=== PATIENT | male | born 1950 | race Caucasian/White ===

== ENCOUNTER 2019-06-27 13:26 | Observation (INO) | payer OTHER ==
[2019-06-27] MEDS ORDERED: FUROSEMIDE 100 MG/10 ML VIAL IV ONE (15:24)
[2019-06-27 15:28] LABS: Absolute Lymphocytes (CBC) 0.9 K/uL (0.7-4.9); Basophils % 0.4 % (0-1.3); Hematocrit 41.6 % (39.6-49.0); MPV 8.9 fL (7.6-11.3); RBC Red Blood Cell Count 4.19 M/uL (4.33-5.43)
[2019-06-27 15:39] LABS: ALT/SGPT 26 U/L (12-78); AST/SGOT 24 U/L (15-37); Albumin 3.8 g/dL (3.4-5.0); Alkaline Phosphatase 57 U/L (45-117); BUN Blood Urea Nitrogen 24 mg/dL (7-18); Bicarbonate 31 mmol/L (21-32); Bilirubin Direct 0.2 mg/dL (0-0.2); Bilirubin Total 0.6 mg/dL (0.2-1.0); Glucose Level 76 mg/dL (74-106); Magnesium 2.4 mg/dL (1.8-2.4); NT PRO-BNP 263 pg/mL (<125); Potassium 4.5 mmol/L (3.5-5.1); Protein, Total 8.2 g/dL (6.4-8.2); Sodium Level 141 mmol/L (136-145); Troponin (Emerg Dept Use Only) < 0.02 ng/mL (0.0-0.045)
[2019-06-27 15:45] LABS: Protime INR 0.98
--- NOTE | 2019-06-27 16:22 | ER ---
Nurse's Notes [facility] Name: Marcio Moreno Age: 68 yrs Sex: Male : 1950 Arrival Date: 06/27/2019 Time: 13:29 Bed 5 Private MD: Diagnosis: Acute combined systolic (congestive) and diastolic (congestive) heart failure Presentation: 06/27 13:29 Presenting complaint: EMS states: SENT FROM [place] FOR SOB, ROOM AIR SAT 85. Transition of bp care: patient was not received from another setting of care. Onset of symptoms is unknown. Risk Assessment: Do you want to hurt yourself or someone else? Patient reports no desire to harm self or others. Initial Sepsis Screen: Does the patient meet any 2 criteria? No. Patient's initial sepsis screen is negative. Does the patient have a suspected source of infection? No. Patient's initial sepsis screen is negative. Care prior to arrival: Medication(s) given: Albuterol Neb x 1, Atrovent Neb x 1, SOLUMEDROL 125. 13:29 Method Of Arrival: EMS: [facility] bp 13:29 Acuity: ANISHA 3 bp Triage Assessment: 13:32 General: Appears in no apparent distress. comfortable, obese, Behavior is calm, bp cooperative, appropriate for age. Pain: Denies pain. EENT: No deficits noted. Neuro: No deficits noted. Cardiovascular: Rhythm is sinus rhythm. Respiratory: Reports shortness of breath Pleural rub noted bilaterally. Onset: The symptoms/episode began/occurred 1 WEEK, the patient has mild shortness of breath. GI: No signs and/or symptoms were reported involving the gastrointestinal system. : No signs and/or symptoms were reported regarding the genitourinary system. Derm: No deficits noted. Musculoskeletal: No deficits noted. Historical: - Allergies: 13:32 FLU VACCINE; bp 13:32 Hydrocodone-Acetaminophen; bp - Home Meds: 13:44 lisinopril 5 mg Oral tab 1 tab once daily [Active]; diphenhydramine HCl 25 mg Oral cap bp [Active]; glimepiride 1 mg Oral tab 1 tab twice a day [Active]; metoprolol tartrate 25 mg Oral tab 1 tab 2 times per day [Active]; simvastatin 40 mg Oral tab 1 tab once daily [Active]; cholecalciferol (vitamin D3) 1,000 unit oral tab daily [Active]; Plavix 75 mg Oral tab 1 tab once daily [Active]; isosorbide mononitrate 60 mg Oral Tb24 1 tab once daily [Active]; - PMHx: 13:44 CAD; Hypertension; Hypothyroidism; CHF; COPD; Cancer; bp - Immunization history:: Adult Immunizations up to date. - Social history:: Smoking status: Patient uses tobacco products, unknown amount. - Ebola Screening: : No symptoms or risks identified at this time. Screenin:36 Abuse screen: Denies threats or abuse. Denies injuries from another. Nutritional bp screening: No deficits noted. Tuberculosis screening: No symptoms or risk factors identified. Fall Risk None identified. Assessment: 13:35 General: SEE TRIAGE NOTE. Cardiovascular: Rhythm is sinus rhythm. Respiratory: Airway bp is patent Respiratory effort is even, unlabored. 14:32 Reassessment: PT STANDING AT B/S "YOU'RE GONNA HAVE A FIGHT ON YOUR HANDS IF SOMEONE bp TRIES TO TOUCH ME WITH A NEEDLE.". 15:02 Reassessment: PT REORIENTED TO PROPER COMMUNICATION TECHNIQUES. U/S GUIDED PIV PLACED bp WITH NO COMPLICATIONS. 15:37 Reassessment: XRAY COMPLETED. ALL CURRENT ORDERS COMPLETED, VS STABLE ON MONITOR. bp Vital Signs: 13:34 BP 138 / 63; Pulse 61; Resp 18; Temp 98.2; Pulse Ox 99% on NC; Weight 132.45 kg; Height bp 5 ft. 8 in. (172.72 cm); 15:36 BP 132 / 67; Pulse 66; Resp 16; Pulse Ox 100% ; bp 17:30 BP 117 / 79; Pulse 64; Resp 16; Pulse Ox 98% ; bp 17:51 BP 127 / 85; Pulse 63; Resp 18; Pulse Ox 96% on 3 lpm NC; bp 13:34 Body Mass Index 44.40 (132.45 kg, 172.72 cm) bp ED Course: 13:29 Patient arrived in ED. bp 13:31 Triage completed. bp 13:34 Arm band placed on. bp 13:36 Patient has correct armband on for positive identification. Bed in low position. Call bp light in reach. Side rails up X2. Adult w/ patient. 13:36 EKG done, by solids control technician. reviewed by Andreas Yin MD. 3 13:37 Lam Moreno, RN is Primary Nurse. bp 13:45 Fredy Colin PA is PHCP. jr8 13:45 Andreas Yin MD is Attending Physician. jr8 14:50 Accessed peripheral vein via ultrasound, utilizing dynamic ultrasound technique using bp 18G Sureflo IV catheter per hospital protocol. Clean \\T\\ dry. Dressing intact. Good blood return. Flushes easily. 16:10 XRAY Chest (1 view) In Process Unspecified. EDMS 16:20 Collins Ta DO is Hospitalizing Provider. jr8 16:27 attempted to initiate a transfer x3 with the [facility] at [phone] ext [phone] without anyone answering the lines. provider notified. 17:30 No provider procedures requiring assistance completed. Patient admitted, IV remains in bp place. Administered Medications: 14:58 Drug: Lasix 80 mg Route: IVP; Site: right upper arm; bp 17:52 Follow up: Response: Marked relief of symptoms bp Outcome: 16:21 Decision to Hospitalize by Provider. jr8 17:31 Condition: stable bp 17:31 Instructed on the need for admit. 17:51 Admitted to Med/surg accompanied by tech, family with patient, via wheelchair, room bp 230, with chart, Report called to MAHIN ZARCO 18:04 Patient left the ED. bp Signatures: Dispatcher [employer] EDNC Fredy Colin PA PA jr8 Lam Moreno, RN RN bp Lupe Fallon Shakira 3
--- NOTE | 2019-06-27 16:22 | EDPHYS ---
Physician Documentation [facility] Name: Marcio Moreno Age: 68 yrs Sex: Male : 1950 Arrival Date: 06/27/2019 Time: 13:29 Bed 5 Private MD: ED Physician Andreas Yin HPI: 06/27 14:14 This 68 yrs old Male presents to ER via EMS with complaints of Shortness Of jr8 Breath. 14:14 The patient has shortness of breath at rest. Onset: The symptoms/episode began/occurred jr8 gradually, 2 day(s) ago, and became worse and became persistent. Duration: The symptoms are continuous. The patient's shortness of breath is aggravated by light activity, walking. Associated signs and symptoms: The patient has no apparent associated signs or symptoms. Severity of symptoms: At their worst the symptoms were moderate in the emergency department the symptoms are unchanged. The patient has not experienced similar symptoms in the past. The patient has been recently seen by a physician:. Patient and stated that they just came to [place] via [employer] train. Stated that he was having some mile shortness of breath a couple of days ago on the way here. Noted that for the past week had increased fluid retention. Now to the point where he can get around well and has increased cough and shortness of breath. Saw [place] [facility] today here and was instructed to go to ED . Historical: - Allergies: 13:32 FLU VACCINE; bp 13:32 Hydrocodone-Acetaminophen; bp - Home Meds: 13:44 lisinopril 5 mg Oral tab 1 tab once daily [Active]; diphenhydramine HCl 25 mg Oral cap bp [Active]; glimepiride 1 mg Oral tab 1 tab twice a day [Active]; metoprolol tartrate 25 mg Oral tab 1 tab 2 times per day [Active]; simvastatin 40 mg Oral tab 1 tab once daily [Active]; cholecalciferol (vitamin D3) 1,000 unit oral tab daily [Active]; Plavix 75 mg Oral tab 1 tab once daily [Active]; isosorbide mononitrate 60 mg Oral Tb24 1 tab once daily [Active]; - PMHx: 13:44 CAD; Hypertension; Hypothyroidism; CHF; COPD; Cancer; bp - Immunization history:: Adult Immunizations up to date. - Social history:: Smoking status: Patient uses tobacco products, unknown amount. - Ebola Screening: : No symptoms or risks identified at this time. ROS: 14:14 Eyes: Negative for injury, pain, redness, and discharge, ENT: Negative for injury, jr8 pain, and discharge, Neck: Negative for injury, pain, and swelling, Abdomen/GI: Negative for abdominal pain, nausea, vomiting, diarrhea, and constipation, Back: Negative for injury and pain, MS/Extremity: Negative for injury and deformity, Skin: Negative for injury, rash, and discoloration, Neuro: Negative for headache, weakness, numbness, tingling, and seizure. 14:14 Cardiovascular: Positive for edema, orthopnea. 14:14 Respiratory: Positive for dyspnea on exertion, orthopnea, shortness of breath. Exam: 14:14 Eyes: Pupils equal round and reactive to light, extra-ocular motions intact. Lids and jr8 lashes normal. Conjunctiva and sclera are non-icteric and not injected. Cornea within normal limits. Periorbital areas with no swelling, redness, or edema. ENT: Nares patent. No nasal discharge, no septal abnormalities noted. Tympanic membranes are normal and external auditory canals are clear. Oropharynx with no redness, swelling, or masses, exudates, or evidence of obstruction, uvula midline. Mucous membranes moist. Neck: Trachea midline, no thyromegaly or masses palpated, and no cervical lymphadenopathy. Supple, full range of motion without nuchal rigidity, or vertebral point tenderness. No Meningismus. Abdomen/GI: Soft, non-tender, with normal bowel sounds. No distension or tympany. No guarding or rebound. No evidence of tenderness throughout. Back: No spinal tenderness. No costovertebral tenderness. Full range of motion. Skin: Warm, dry with normal turgor. Normal color with no rashes, no lesions, and no evidence of cellulitis. MS/ Extremity: Pulses equal, no cyanosis. Neurovascular intact. Full, normal range of motion. Neuro: Awake and alert, GCS 15, oriented to person, place, time, and situation. Cranial nerves II-XII grossly intact. Motor strength 5/5 in all extremities. Sensory grossly intact. Cerebellar exam normal. Normal gait. 14:14 Cardiovascular: Rate: normal, Rhythm: regular, Pulses: Pulses are 2+ in right radial artery and left radial artery. Heart sounds: normal, normal S1and S2, no S3 or S4, no murmur, no rub, no gallop, Edema: 3+ edema to level of left midcalf, left ankle, left foot, left toes, right midcalf, right ankle, right foot and right toes, JVD: is not appreciated. 14:14 Respiratory: the patient does not display signs of respiratory distress, Respirations: normal, symetrical, no use of accessory muscles, no grunting, no evidence of nasal flaring, no appreciated paradoxical movements, no prolonged exhalations, no pursed lip breathing, no retractions, no shallow respirations, no splinting, no tachypnea, Breath sounds: rales, that are moderate, are heard diffusely, wheezing: expiratory that is mild, is heard diffusely. Vital Signs: 13:34 BP 138 / 63; Pulse 61; Resp 18; Temp 98.2; Pulse Ox 99% on NC; Weight 132.45 kg; Height bp 5 ft. 8 in. (172.72 cm); 15:36 BP 132 / 67; Pulse 66; Resp 16; Pulse Ox 100% ; bp 17:30 BP 117 / 79; Pulse 64; Resp 16; Pulse Ox 98% ; bp 17:51 BP 127 / 85; Pulse 63; Resp 18; Pulse Ox 96% on 3 lpm NC; bp 13:34 Body Mass Index 44.40 (132.45 kg, 172.72 cm) bp MDM: 13:58 Patient medically screened. [facility] 16:11 Data reviewed: vital signs, nurses notes, lab test result(s), EKG, radiologic studies, jr8 plain films. Data interpreted: Pulse oximetry: on 3L(s) per nasal canula, is 99 %. Interpretation: acceptable. Counseling: I had a detailed discussion with the patient and/or guardian regarding: the historical points, exam findings, and any diagnostic results supporting the discharge/admit diagnosis, lab results, radiology results, the need for further work-up and treatment in the hospital. 16:26 ED course: Attempted to call the [place] [facility] for transfer since patient is fully [place] jr8 insured patient. We tried 3 times with no answer or call back. Patient is wanting to stay here as well. Notified HM about this. Will accept patient . 06/27 13:59 Order name: Basic Metabolic Panel; Complete Time: 15:51 06/27 13:59 Order name: CBC with Diff; Complete Time: 15:51 06/27 13:59 Order name: LFT's; Complete Time: 15:51 06/27 13:59 Order name: Magnesium; Complete Time: 15:51 06/27 13:59 Order name: NT PRO-BNP; Complete Time: 15:51 06/27 13:59 Order name: PT-INR; Complete Time: 15:56 06/27 13:59 Order name: Troponin (emerg Dept Use Only); Complete Time: 15:51 06/27 13:59 Order name: XRAY Chest (1 view); Complete Time: 16:47 06/27 13:59 Order name: EKG; Complete Time: 14:01 06/27 13:59 Order name: Cardiac monitoring; Complete Time: 14:27 06/27 13:59 Order name: EKG - Nurse/Tech; Complete Time: 14:27 06/27 13:59 Order name: IV Saline Lock; Complete Time: 14:58 06/27 13:59 Order name: Labs collected and sent; Complete Time: 14:58 06/27 13:59 Order name: O2 Per Protocol; Complete Time: 14:27 06/27 13:59 Order name: O2 Sat Monitoring; Complete Time: 14:27 Administered Medications: 14:58 Drug: Lasix 80 mg Route: IVP; Site: right upper arm; bp 17:52 Follow up: Response: Marked relief of symptoms bp Disposition: 06/28 07:17 Co-signature as Attending Physician, Andreas Yin MD I agree with the assessment and kdr plan of care. Disposition: 06/27/19 16:21 Hospitalization ordered by Collins Ta for Observation. Preliminary diagnosis is Acute combined systolic (congestive) and diastolic (congestive) heart failure. - Bed requested for Telemetry/MedSurg (observation). - Status is Observation. bp - Condition is Fair. - Problem is new. - Symptoms have improved. UTI on Admission? No Signatures: Dispatcher [employer] Christy Cole RN RN dw Rittger, Kevin, MD MD kdr Roszak, Josh PA PA jr8 Lam Moreno, RN RN bp Corrections: (The following items were deleted from the chart) 06/27 17:29 16:21 Hospitalization Ordered by Collins Ta DO for Observation. Preliminary dw diagnosis is Acute combined systolic (congestive) and diastolic (congestive) heart failure. Bed requested for Telemetry/MedSurg (observation). Status is Observation. Condition is Fair. Problem is new. Symptoms have improved. UTI on Admission? No. jr8 18:04 17:29 06/27/2019 16:21 Hospitalization Ordered by Collins Ta DO for Observation. bp Preliminary diagnosis is Acute combined systolic (congestive) and diastolic (congestive) heart failure. Bed requested for Telemetry/MedSurg (observation). Status is Observation. Condition is Fair. Problem is new. Symptoms have improved. UTI on Admission? No. dw
--- NOTE | 2019-06-27 16:23 | RAD REPORT ---
EXAM DESCRIPTION: Ann Single View06/27/2019 3:44 pm CLINICAL HISTORY: sob COMPARISON: none FINDINGS: The lungs appear clear of acute infiltrate. The heart is mildly enlarged IMPRESSION: No acute abnormalities displayed
--- NOTE | 2019-06-27 16:49 | P.HP ---
Certification for Inpatient Patient admitted to: Observation With expected LOS: <2 Midnights Patient will require the following post-hospital care: None Practitioner: I am a practitioner with admitting privileges, knowledge of patient current condition, hospital course, and medical plan of care. Services: Services provided to patient in accordance with Admission requirements found in Title 42 Section 412.3 of the Code of Federal Regulations Patient History Date of Service: 06/27/19 Primary Care Provider: [facility] Reason for admission: Shortness of breath, edema to the lower extremity History of Present Illness: 68-year-old male presented to the emergency room via EMS for shortness of breath and edema to the lower extremity. Patient with history of CHF, COPD, CAD with prior stent, diabetes mellitus type 2 non insulin dependent , hypertension, hyperlipidemia, and hypothyroidism. The patient is currently visiting from [facility]. Patient gets his care at the [facility]. Over the last several weeks the patient has noted increasing edema to the lower extremity. Shortness of breath has been noted over the past several days. His shortness of breath got worse today. Patient denied any chest pain. No reports of fever, chills or cough. Patient still smokes regularly. Patient with history of CHF. Patient does not take any diuretic medication. Patient was seen at the local [facility]. He was found to be hypoxic with some shortness of breath. He was sent to the ER by EMS. In the ER patient was evaluated. EMS reported room-air saturations around 88%. Patient appeared to have increasing edema to the lower extremity with evidence of CHF. Patient was given IV Lasix 80 mg in the emergency room. Chest x-ray showed CHF pattern. White count 9.7, hemoglobin 14. Sodium 141, potassium 4.5. BUN of 24, creatinine 1.6 with a GFR of 42. Troponin unremarkable. BNP 263. Patient was admitted for further evaluation and treatment. When I saw the patient in the ER, patient felt improved with IV Lasix. ER tried to transfer the patient to the [place] since he has full [facility] benefit. Transfer was not successful. Therefore patient to be admitted to the hospital. Home medications list reviewed: Yes - Past Medical/Surgical History Diabetic: Yes -: Diabetes mellitus type 2, non insulin dependent -: Hypertension -: Hyperlipidemia -: CAD with prior stents -: CHF -: COPD -: Tobacco abuse -: Hypothyroidism -: Obesity -: B12 deficiency -: Cholecystectomy -: Lithotripsy -: Cardiac stents x2 -: Left elbow surgery -: Right knee surgery Psychosocial/ Personal History: Patient is . He is originally from [facility]. He is visiting in the area. - Family History Family History: Reviewed- Non-Contributory - Social History Smoking Status: Heavy Tobacco smoker (>10 cigarettes/day) Counseled patient to stop smoking for: less than 10 minutes Smoking therapy provided: Yes Patient receptive to therapy: No Alcohol use: Yes CD- Drugs: No Caffeine use: Yes Place of Residence: Home Review of Systems General: As per HPI Eyes: Unremarkable ENT: Unremarkable Respiratory: Shortness of Breath, Wheezing, As per HPI Cardiovascular: Edema, As per HPI Gastrointestinal: Unremarkable Genitourinary: Unremarkable Musculoskeletal: Pedal edema, As per HPI Integumentary: Unremarkable Neurological: Unremarkable Lymphatics: Unremarkable Physical Examination - Physical Exam General: Alert, In no apparent distress, Oriented x3, Cooperative HEENT: Atraumatic, Normocephalic, PERRLA, Mucous membr. moist/pink Neck: Supple, No Thyromegaly Respiratory: Crackles/rales (Bilateral), Expiratory wheezes (Bilateral) Cardiovascular: Normal pulses, Regular rate/rhythm Gastrointestinal: Normal bowel sounds, Soft and benign, Non-distended, No tenderness, No masses, No rebound, No guarding Musculoskeletal: No erythema, No tenderness, No warmth Integumentary: Tenderness/swelling (1 to 2+ pitting edema to the lower extremities below the knee) Neurological: Normal speech, Normal strength at 5/5 x4 extr, Normal tone, Normal affect - Studies Laboratory Data (last 24 hrs) 06/27/19 14:55: PT 11.6, INR 0.98 06/27/19 14:55: WBC 4.7, Hgb 14.1, Hct 41.6, Plt Count 119 L 06/27/19 14:55: Sodium 141, Potassium 4.5, BUN 24 H, Creatinine 1.65 H, Glucose 76, Magnesium 2.4, Total Bilirubin 0.6, AST 24, ALT 26, Alkaline Phosphatase 57 Assessment and Plan - Plan Impression: Dyspnea with edema to the lower extremity secondary to acute on chronic CHF likely systolic dysfunction with possible COPD exacerbation CAD with prior stent Hypertension Diabetes mellitus type 2 non insulin dependent Hyperlipidemia Hypothyroidism B12 deficiency Obesity Plan: Dyspnea with edema to the lower extremity secondary to acute on chronic CHF likely systolic dysfunction with possible COPD exacerbation: Patient will be admitted for further evaluation and observation. Will continue with IV Lasix. Will continue with a 1500 cc per day fluid restriction and low-salt diet. Will monitor his weight and input and output closely. Will check echocardiogram to further evaluate. Will continue to monitor on telemetry and cardiac enzymes. Will consult cardiology for further recommendation. Patient may have a component of COPD exacerbation as the patient still smokes regularly. Will start low-dose steroid taper. Will start COPD medication-Brovana, Xopenex and Atrovent. Will wean off oxygen. Maintain sats above 93% at this time. Will reassess tomorrow. Anticipate discharge likely tomorrow with clinical improvement. CAD with prior stent: Continue with aspirin, Plavix. Will provide DVT prophylaxis-Lovenox. Will monitor cardiac enzymes and telemetry. Echocardiogram ordered. Cardiology consulted. Hypertension: Restart lisinopril 5 mg daily and metoprolol 25 mg 1 pill twice daily. Will monitor and adjust appropriately. Diabetes mellitus type 2 non insulin dependent: Will check A1c. Will continue to monitor Accu-Cheks and provide insulin sliding scale. Hyperlipidemia: Continue with medication. Will check fasting lipid panel. Hypothyroidism: Will check tsh and free T4. Will continue with levothyroxine 200 mcg daily. B12 deficiency: Will continue with B12 supplementation. Obesity: Will check BMI. Will address lifestyle modification education. Discharge Plan: Home Plan to discharge in: 24 Hours - Advance Directives Does patient have a Living Will: No Does patient have a Durable POA for Healthcare: No - Code Status/Comfort Care Code Status Assessed: Yes (Patient is full code) Time Spent Managing Pts Care (In Minutes): 55
--- NOTE | 2019-06-27 17:22 | EKG ---
Test Date: 2019-06-27 Test Time: 13:30:10 Binder Roller: KIYA MEASUREMENT RESULTS: Intervals: Rate: 63 TX: 158 QRSD: 108 QT: 406 QTc: 415 [place]: P: 51 TX: 158 QRS: -37 T: 45 INTERPRETIVE STATEMENTS: Normal sinus rhythm Left axis deviation Abnormal ECG No previous ECG available for comparison Electronically Signed On 06-27-19 17:21:31 PET CARE ASSISTANT by Jovi Mars
[2019-06-27] MEDS ORDERED: ACETAMINOPHEN 500 MG TAB PO PRN (17:57)
[2019-06-27] MEDS ORDERED: ONDANSETRON 4 MG/2 ML VIAL IV PRN (17:57)
[2019-06-27] MEDS ORDERED: LEVALBUTEROL 0.63 MG/3 ML NEB NEB PRN (17:57)
[2019-06-27 18:38] VITALS: BMI 44.4
[2019-06-27] MEDS: METOPROLOL TAR 25 MG TAB PO SCH (18:49)
[2019-06-27] MEDS: NICOTINE 21 MG/PAT TD SCH (19:00)
[2019-06-27] MEDS: ARFORMOTEROL TARTRATE 15 MCG/2 ML VIAL.NEB NEB SCH (20:00)
[2019-06-27] MEDS: LACTOBACILLUS/ACIDOPHILUS TAB PO SCH (20:23)
[2019-06-27] MEDS: DOCOSAHEXANOIC AC/EPA 1000 MG PO SCH (20:23)
[2019-06-27] MEDS: predniSONE 10 MG TAB PO SCH (20:24)
[2019-06-27] MEDS: FUROSEMIDE 40 MG/4 ML VIAL IV SCH (20:24)
[2019-06-27] MEDS: ATORVASTATIN 20 MG TAB PO SCH (20:24)
[2019-06-27 20:37] LABS: CKMB Creatine Kinase MB < 1.0 ng/mL (0.3-3.6); Creatine Phosphokinase 46 U/L (39-308); Troponin I < 0.02 ng/mL (0.0-0.045)
[2019-06-27] MEDS: INSULIN -REGULAR HUMAN 50 UNIT/0.5 ML ML SQ SCH (21:00)
[2019-06-27] MEDS: ENOXAPARIN 40 MG/0.4 ML SQ SCH (21:00)
[2019-06-28] MEDS: METOPROLOL TAR 25 MG TAB PO SCH ×2 (06:00→17:03)
[2019-06-28] MEDS: LEVOTHYROXINE SOD 0.1 MG TAB PO SCH (06:30)
[2019-06-28 06:39] LABS: Absolute Lymphocytes (CBC) 0.6 K/uL (0.7-4.9); BUN Blood Urea Nitrogen 32 mg/dL (7-18); Bicarbonate 27 mmol/L (21-32); CKMB Creatine Kinase MB < 1.0 ng/mL (0.3-3.6); Creatine Phosphokinase 43 U/L (39-308); Glucose Level 246 mg/dL (74-106); HDL Cholesterol 42 mg/dL (40-60); Hematocrit 41.1 % (39.6-49.0); LDL Cholesterol, Calculated 77 (<130); Lymphocytes % 9.3 % (15.3-44.8); MPV 9.3 fL (7.6-11.3); Magnesium 2.3 mg/dL (1.8-2.4); Potassium 4.5 mmol/L (3.5-5.1); RBC Red Blood Cell Count 4.16 M/uL (4.33-5.43); Sodium Level 136 mmol/L (136-145); Thyroid Stimulating Hormone 0.073 uIU/mL (0.360-3.740); Troponin I < 0.02 ng/mL (0.0-0.045)
--- NOTE | 2019-06-28 07:10 | RAD REPORT ---
EXAM DESCRIPTION: RAD - Chest Pa And Lat (2 Views) - 06/28/2019 6:45 am CLINICAL HISTORY: follow up CHF COMPARISON: June 27 TECHNIQUE: PA and lateral views of the chest were obtained. FINDINGS: The lungs are slightly underinflated. No focal mass or consolidation. Interstitial opacifi cation pattern has not changed. Heart size and vasculature are stable. Trachea is midline. No pleur al effusion or pneumothorax seen. No acute bony finding noted. No aortic abnormality. IMPRESSION: Stable chest from prior day imaging.
[2019-06-28] MEDS: INSULIN -REGULAR HUMAN 50 UNIT/0.5 ML ML SQ SCH ×4 (07:30→21:00)
[2019-06-28] MEDS: ARFORMOTEROL TARTRATE 15 MCG/2 ML VIAL.NEB NEB SCH ×2 (08:15→20:00)
[2019-06-28 08:46] LABS: Blood Morphology Comment NOT SEEN (NOT SEEN); Platelet Estimate ADEQ; Urine White Blood Cell Casts OK
[2019-06-28] MEDS: ENOXAPARIN 40 MG/0.4 ML SQ SCH (09:00)
[2019-06-28] MEDS: lisinopriL 5 MG TAB PO SCH (09:00)
[2019-06-28] MEDS: NICOTINE 21 MG/PAT TD SCH (09:35)
[2019-06-28] MEDS: FUROSEMIDE 40 MG/4 ML VIAL IV SCH ×2 (09:37→17:03)
[2019-06-28] MEDS: DOCOSAHEXANOIC AC/EPA 1000 MG PO SCH ×2 (09:38→21:41)
[2019-06-28] MEDS: LACTOBACILLUS/ACIDOPHILUS TAB PO SCH ×2 (09:38→21:41)
[2019-06-28] MEDS: CLOPIDOGREL 75 MG TABLET PO SCH (09:38)
[2019-06-28] MEDS: CYANOCOBALAMIN 1,000 MCG TAB PO SCH (09:40)
[2019-06-28] MEDS: predniSONE 10 MG TAB PO SCH ×2 (09:40→21:42)
[2019-06-28] MEDS: ISOSORBIDE MONO SR 60 MG TAB PO SCH (09:40)
[2019-06-28] MEDS: ASPIRIN EC 81 MG TAB PO SCH (09:40)
--- NOTE | 2019-06-28 12:16 | P.DS ---
Admission Date: 06/27/19 Discharge Date: 06/28/19 Primary Care Provider: [facility] Disposition: ROUTINE DISCHARGE Discharge Condition: GOOD Reason for Admission: Shortness of breath, edema to the lower extremity Consultations: Cardiology-Dr. Mars Procedures: CXR: FINDINGS: The lungs are slightly underinflated. No focal mass or consolidation. Interstitial opacification pattern has not changed. Heart size and vasculature are stable. Trachea is midline. No pleural effusion or pneumothorax seen. No acute bony finding noted. No aortic abnormality. IMPRESSION: Stable chest from prior day imaging. ECHO: Unremarkable per Cardiology Medical Problem List: Dyspnea with edema to the lower extremity secondary to acute on chronic CHF likely diastolic dysfunction with COPD exacerbation CAD with prior stent Hypertension Diabetes mellitus type 2 non insulin dependent Hyperlipidemia Hypothyroidism B12 deficiency Obesity Brief History of Present Illness: 68-year-old male presented to the emergency room via EMS for shortness of breath and edema to the lower extremity. Patient with history of CHF, COPD, CAD with prior stent, diabetes mellitus type 2 non insulin dependent , hypertension, hyperlipidemia, and hypothyroidism. The patient is currently visiting from [facility]. Patient gets his care at the [facility]. Over the last several weeks the patient has noted increasing edema to the lower extremity. Shortness of breath has been noted over the past several days. His shortness of breath got worse today. Patient denied any chest pain. No reports of fever, chills or cough. Patient still smokes regularly. Patient with history of CHF. Patient does not take any diuretic medication. Patient was seen at the local [facility]. He was found to be hypoxic with some shortness of breath. He was sent to the ER by EMS. In the ER patient was evaluated. EMS reported room-air saturations around 88%. Patient appeared to have increasing edema to the lower extremity with evidence of CHF. Patient was given IV Lasix 80 mg in the emergency room. Chest x-ray showed CHF pattern. White count 9.7, hemoglobin 14. Sodium 141, potassium 4.5. BUN of 24, creatinine 1.6 with a GFR of 42. Troponin unremarkable. BNP 263. Patient was admitted for further evaluation and treatment. When I saw the patient in the ER, patient felt improved with IV Lasix. ER tried to transfer the patient to the [place] since he [place] [facility]. Transfer was not successful. Therefore patient to be admitted to the hospital. Hospital Course: Patient presented with dyspnea and edema to the lower extremity. Patient was evaluated in the emergency room. CHF was suspected. BMP within normal range. Chest x-ray showed no pneumonia. Patient was given Lasix in the emergency room. Patient admitted for further evaluation. Patient also with history of COPD. Patient seen and evaluated by Cardiology. Cardiac enzymes unremarkable. Echocardiogram unremarkable. Patient responded to therapy. During the course of the stay patient was given medication for COPD. Cardiology felt shortness of breath likely related to COPD exacerbation rather than his CHF. At discharge patient will continue his CHF medication-Lasix 40 mg daily. He will continue with a 1500 cc per day fluid restriction and low-salt diet. He is to monitor his weight daily. If his weight increases above more than 5 lb he is to contact his PCP for further recommendation. For his COPD exacerbation will recommend to continue prednisone 10 mg 1 pill twice daily for 5 days then 1 pill once daily for 5 days. Patient will start COPD medication-Advair 1 puff twice daily and Pro air 2 puffs 3 times a day as needed for shortness of breath. Recommend follow up with pulmonology to monitor and address his COPD. Recommend follow up with cardiology to monitor his CHF. Prior to discharge patient was evaluated for the need of home oxygen. Patient qualifies for home oxygen. This will be arranged prior to discharge. Recommend follow up at the [facility] to further address and monitor. Patient with CAD with prior stent. Cardiac enzymes unremarkable. Echocardiogram unremarkable as well. Cardiology recommended to discontinue Plavix as the patient had stent many years ago. At discharge patient will continue with aspirin 81 mg daily. Recommend follow up with cardiology to further address. Patient with hypertension. This has remained stable. At discharge he will continue with lisinopril 5 mg daily and metoprolol 25 mg 1 pill twice daily. Recommend to maintain blood pressures of 150/80. Further adjustment can be done by his PCP. Patient with diabetes mellitus type 2 non-insulin dependent. A1c 6.0. At discharge patient continue with his medication-Amaryl 1 mg 1 pill twice daily. Patient with hyperlipidemia. Fasting lipid panel within normal range. At discharge he will continue with his prior medication. Patient with hypothyroidism. Stable this time. At discharge he will continue with levothyroxine 200 mcg daily. Further adjustment can be done by his PCP. Vital Signs/Physical Exam: Temp Pulse Resp BP Pulse Ox 97.6 F 65 19 116/65 92 06/28/19 08:00 06/28/19 09:45 06/28/19 09:45 06/28/19 09:45 06/28/19 09:45 General: Alert, In no apparent distress, Oriented x3, Cooperative HEENT: Atraumatic Neck: Supple Respiratory: Clear to auscultation bilaterally, Normal air movement Cardiovascular: Normal pulses, Regular rate/rhythm Gastrointestinal: Normal bowel sounds, Soft and benign, Non-distended, No tenderness, No masses, No rebound, No guarding Musculoskeletal: No erythema, No tenderness, No warmth Integumentary: No erythema, No warmth, No cyanosis, Tenderness/swelling ( Improvement in lower extremity edema) Neurological: Normal speech, Normal strength at 5/5 x4 extr, Normal tone, Normal affect Laboratory Data at Discharge: WBC 6.2 K/uL (4.3-10.9) D 06/28/19 05:37 Hgb 14.0 g/dL (13.6-17.9) 06/28/19 05:37 Hct 41.1 % (39.6-49.0) 06/28/19 05:37 Plt Count 118 K/uL (152-406) L 06/28/19 05:37 PT 11.6 SECONDS (9.5-12.5) 06/27/19 14:55 INR 0.98 06/27/19 14:55 Sodium 136 mmol/L (136-145) 06/28/19 05:37 Potassium 4.5 mmol/L (3.5-5.1) 06/28/19 05:37 BUN 32 mg/dL (7-18) H 06/28/19 05:37 Creatinine 1.64 mg/dL (0.55-1.3) H 06/28/19 05:37 Glucose 246 mg/dL (74-106) H 06/28/19 05:37 Magnesium 2.3 mg/dL (1.8-2.4) 06/28/19 05:37 Total Bilirubin 0.6 mg/dL (0.2-1.0) 06/27/19 14:55 AST 24 U/L (15-37) 06/27/19 14:55 ALT 26 U/L (12-78) 06/27/19 14:55 Alkaline Phosphatase 57 U/L (45-117) 06/27/19 14:55 Troponin I < 0.02 ng/mL (0.0-0.045) 06/28/19 05:37 Triglycerides 77 mg/dL (<150) 06/28/19 05:37 Cholesterol 134 mg/dL (<200) 06/28/19 05:37 HDL Cholesterol 42 mg/dL (40-60) 06/28/19 05:37 Cholesterol/HDL Ratio 3.19 06/28/19 05:37 Home Medications: Cholecalciferol (Vitamin D3) [Vitamin D3] 1,000 unit PO DAILY 06/27/19 Diphenhydramine HCl [Allergy Relief] 25 mg PO BID 06/27/19 Glimepiride [Amaryl] 1 mg PO BID 06/27/19 Isosorbide Mononitrate [Isosorbide Mononitrate ER] 30 mg PO DAILY 06/27/19 Levothyroxine [Synthroid*] 200 mcg PO 0600 06/27/19 Lisinopril [Prinivil*] 5 mg PO DAILY 06/27/19 Metoprolol Tartrate [Lopressor*] 25 mg PO BID 06/27/19 Simvastatin 40 mg PO BEDTIME 06/27/19 Albuterol Sulfate [Proair Hfa] 2 puff IH TID PRN #1 hfa.aer.ad 06/28/19 Aspirin [Aspirin EC 81 MG] 81 mg PO DAILY #90 tablet. 06/28/19 Fluticasone/Salmeterol [Advair 250-50 Diskus] 1 each IH BID #1 blst.w.dev Furosemide [Lasix*] 40 mg PO DAILY 06/28/19 predniSONE [Deltasone*] 10 mg PO SEECOM #15 tab 06/28/19 New Medications: Albuterol Sulfate [Proair Hfa] 2 puff IH TID PRN #1 hfa.aer.ad PRN Reason: Shortness Of Breath Aspirin [Aspirin EC 81 MG] 81 mg PO DAILY #90 tablet. Fluticasone/Salmeterol [Advair 250-50 Diskus] 1 each IH BID #1 blst.w.dev predniSONE [Deltasone*] 10 mg PO SEECOM #15 tab Patient Discharge Instructions: 1. Recommend follow up at the [facility] within 1 week to follow up this hospitalization. 2. Patient presented with dyspnea and edema to the lower extremity. Patient was evaluated in the emergency room. CHF was suspected. BMP within normal range. Chest x-ray showed no pneumonia. Patient was given Lasix in the emergency room. Patient admitted for further evaluation. Patient also with history of COPD. Patient seen and evaluated by Cardiology. Cardiac enzymes unremarkable. Echocardiogram unremarkable. Patient responded to therapy. During the course of the stay patient was given medication for COPD. Cardiology felt shortness of breath likely related to COPD exacerbation rather than his CHF. At discharge patient will continue his CHF medication-Lasix 40 mg daily. He will continue with a 1500 cc per day fluid restriction and low-salt diet. He is to monitor his weight daily. If his weight increases above more than 5 lb he is to contact his PCP for further recommendation. For his COPD exacerbation will recommend to continue prednisone 10 mg 1 pill twice daily for 5 days then 1 pill once daily for 5 days. Patient will start COPD medication-Advair 1 puff twice daily and Pro air 2 puffs 3 times a day as needed for shortness of breath. Recommend follow up with pulmonology to monitor and address his COPD. Recommend follow up with cardiology to monitor his CHF. Prior to discharge patient was evaluated for the need of home oxygen. Patient qualifies for home oxygen. This will be arranged prior to discharge. Recommend follow up at the [facility] to further address and monitor. 3. Patient with CAD with prior stent. Cardiac enzymes unremarkable. Echocardiogram unremarkable as well. Cardiology recommended to discontinue Plavix as the patient had stent many years ago. At discharge patient will continue with aspirin 81 mg daily. Recommend follow up with cardiology to further address. 4. Patient with hypertension. This has remained stable. At discharge he will continue with lisinopril 5 mg daily and metoprolol 25 mg 1 pill twice daily. Recommend to maintain blood pressures of 150/80. Further adjustment can be done by his PCP. 5. Patient with diabetes mellitus type 2 non-insulin dependent. A1c 6.0. At discharge patient continue with his medication-Amaryl 1 mg 1 pill twice daily. 6. Patient with hyperlipidemia. Fasting lipid panel within normal range. At discharge he will continue with his prior medication. 7. Patient with hypothyroidism. Stable this time. At discharge he will continue with levothyroxine 200 mcg daily. Further adjustment can be done by his PCP. Diet: ADA Activity: Ad kali Time spent managing pt's care (in minutes): 55
--- NOTE | 2019-06-28 13:01 | ECHO ---
HEIGHT: 5 ft 8 in WEIGHT: 292 lb 0.36 oz DATE OF STUDY: 06/28/[address]: Collins Ta DO 2-DIMENSIONAL: YES M.MODE: YES DOPPLER: YES COLOR FLOW: YES TDS: NO PORTABLE: NO DEFINITY: NO BUBBLE STUDY: NO DIAGNOSIS: SHORTNESS OF BREATH, CONGESTIVE HEART FAILURE CARDIAC HISTORY: CATHERIZATION: NO SURGERY: NO PROSTHETIC VALVE: NO PACEMAKER: NO MEASUREMENTS (cm) DIASTOLIC (NORMALS) SYSTOLIC (NORMALS) IVSd 1.1 (0.6-1.2) LA Diam (1.9-4.0) LVEF 60% LVIDd 4.9 (3.5-5.7) LVIDs 3.3 (2.0-3.5) %FS 32% LVPWd 1.3 (0.6-1.2) Ao Diam 3.5 (2.0-3.7) 2 DIMENSIONAL ASSESSMENT: RIGHT ATRIUM: NORMAL LEFT ATRIUM: NORMAL RIGHT VENTRICLE: NORMAL LEFT VENTRICLE: NORMAL TRICUSPID VALVE: NORMAL MITRAL VALVE: NORMAL PULMONIC VALVE: NORMAL AORTIC VALVE: NORMAL PERICARDIAL EFFUSION: NONE AORTIC ROOT: NORMAL LEFT VENTRICULAR WALL MOTION: NORMAL DOPPLER/COLOR FLOW: NORMAL COMMENTS: NORMAL LEFT VENTRICULAR SIZE AND FUNCTION. NO WALL MOTION ABNORMALITY. NO EFFUSION. AORTIC SCLEROSIS WITH NO STENOSIS. TECHNOLOGIST: Liliya MULLER
--- NOTE | 2019-06-28 16:46 | CON ---
Date of Consultation: 06/28/2019 Reason For Consultation: Possible congestive heart failure. History Of Present Illness: Mr. Moreno is a 68-year-old white male. He lives in [place]. He is vi siting [place]. He went to the [facility] because of cough that is productive and was sent to the hospital for possible congestive heart failure because of edema. He actually denied any chest pain. Has had shortness of breath. Had had some PND but no orthopnea. He denied any palpitation or syncope. Den ied any fever or chills. Workup so far has been negative from a cardiovascular standpoint. He had a normal chest x-ray, normal troponin. His creatinine is 1.65. His BNP was only 263. His EKG showed left axis deviation, otherwise normal. His glucose was 284. Weight 292 pounds. Past Medical History: Include hypertension, diabetes, history of congestive heart failure, unknown w hether it is systolic or diastolic. He has had a history of CAD, status post LAD stent about 10 year s ago. Last stress test in [place] was 5 years ago. He has a history of COPD. Allergies: HE IS ALLERGIC HYDROCODONE AND FLU VACCINE. Medications: At home include metoprolol, Lasix, Imdur, insulin, Lipitor, Synthroid, lisinopril, inha ler, and Plavix. Review of Systems: Negative. Social History: Negative. Family History: Noncontributory. Physical Examination: Vital Signs: He weighed 292 pounds. Vital Signs are stable, afebrile, sinus rhythm. HEENT: Negative. Neck: Supple with no bruit. Chest: Clear. Cardiac: Revealed a regular rhythm and rate. No murmurs, gallops, rubs. Abdomen: Obese, but benign. Extremities: Revealed 1+ edema to be chronic. Skin: Dry and intact. Neurologic: He was nonfocal. Diagnostic Data: As stated earlier. Impression And Plan: 1.Shortness of breath, cough, paroxysmal nocturnal dyspnea with normal chest x-ray and normal tropon in. I think his symptoms are secondary to bronchitis, probably viral. I agree with prednisone thera py. I would the Lasix p.r.n. Continue with present medical regimen . I would be pleased to have it . Echocardiogram is pending. 2.Obesity. 3.Chronic venous insufficiency. 4.Diabetes, poorly controlled. 5.Dyslipidemia. 6.Hypertension, well controlled. 7.At the [facility] 10 years ago. He can have that as an outpatient and [place]. 8.He has a history of COPD that is stable. After the echocardiogram Mr. Moreno can go home. I will d iscuss the case further with Dr. Ta. ADAMARIS/JANENE Voice ID: [id number] Report ID: [id number]
[2019-06-28] MEDS: IPRATROPIUM BROM 0.5MG/2.5ML NEB PRN (20:00)
[2019-06-28] MEDS: ATORVASTATIN 20 MG TAB PO SCH (21:42)
[2019-06-29 05:03] VITALS: BP 133/71; TEMP 97.4
[2019-06-29] MEDS: LEVOTHYROXINE SOD 0.1 MG TAB PO SCH (05:42)
[2019-06-29] MEDS: METOPROLOL TAR 25 MG TAB PO SCH (05:42)
[2019-06-29] MEDS: INSULIN -REGULAR HUMAN 50 UNIT/0.5 ML ML SQ SCH ×2 (07:30→11:30)
[2019-06-29] MEDS: IPRATROPIUM BROM 0.5MG/2.5ML NEB PRN (07:35)
[2019-06-29] MEDS: ARFORMOTEROL TARTRATE 15 MCG/2 ML VIAL.NEB NEB SCH (07:35)
[2019-06-29] MEDS: ISOSORBIDE MONO SR 60 MG TAB PO SCH (08:09)
[2019-06-29] MEDS: predniSONE 10 MG TAB PO SCH (08:09)
[2019-06-29] MEDS: LACTOBACILLUS/ACIDOPHILUS TAB PO SCH (08:09)
[2019-06-29] MEDS: ASPIRIN EC 81 MG TAB PO SCH (08:09)
[2019-06-29] MEDS: CYANOCOBALAMIN 1,000 MCG TAB PO SCH (08:09)
[2019-06-29] MEDS: DOCOSAHEXANOIC AC/EPA 1000 MG PO SCH (08:09)
[2019-06-29] MEDS: CLOPIDOGREL 75 MG TABLET PO SCH (08:09)
[2019-06-29] MEDS: FUROSEMIDE 40 MG/4 ML VIAL IV SCH (08:10)
[2019-06-29] MEDS: NICOTINE 21 MG/PAT TD SCH (08:10)
[2019-06-29] MEDS: lisinopriL 5 MG TAB PO SCH (08:10)
[2019-06-29] MEDS: ENOXAPARIN 40 MG/0.4 ML SQ SCH (08:10)
[2019-06-29 08:17] VITALS: O2SAT 95
--- NOTE | 2019-06-29 14:27 | P.PN ---
Subjective Date of Service: 06/29/19 Primary Care Provider: Rain LORA Chief Complaint: Shortness of breath, edema to the lower extremity Subjective: Improving (Patient is doing well on the new complaints has shortness of breath on exertion) Review of Systems Unremarkable Physical Examination - Vital Signs Temperature: 97.4 F Blood Pressure: 133/71 Pulse: 57 Respirations: 14 Pulse Ox (%): 95 - Physical Exam General: Alert, In no apparent distress, Oriented x3 Respiratory: Clear to auscultation bilaterally, Diminished Cardiovascular: No edema Assessment & Plan - Problems (Diagnosis) (1) Diastolic heart failure Status: Acute Plan: Patient is 68 years of age admitted with acute on chronic diastolic heart failure the time of discharge patient was doing well alert oriented responsive cooperative room-air sats a satisfactory he did experience mild desaturation on exertion. Patient has a history of obstructive sleep apnea non compliant with medication patient visiting from [facility] for a vacation here he has chronic renal failure advice to resume all his home medications double the dose of Lasix in in case he experiences worsening lower extremity edema or swelling he has possible underlying COPD in continue with his bronchodilators agree with Advair Qualifiers: Heart failure chronicity: acute on chronic Qualified Code(s): I50.33 - Acute on chronic diastolic (congestive) heart failure
== END 2019-06-29 13:44 | disposition home or self-care (01) ==
LOC: ER 13:26 → ERHOLD 16:34 → 2ND 17:51
PROVIDERS: ADMIT Family Medicine; ATTEND Internal Medicine Sleep Medicine
DX: I50.33 Acute on chronic diastolic (congestive) heart failure (principal); J44.1 Chronic obstructive pulmonary disease with (acute) exacerbation; E53.8 Deficiency of other specified B group vitamins; I25.10 Atherosclerotic heart disease of native coronary artery without angina pectoris; I11.0 Hypertensive heart disease with heart failure; E78.5 Hyperlipidemia, unspecified; E03.9 Hypothyroidism, unspecified; E11.9 Type 2 diabetes mellitus without complications; F17.210 Nicotine dependence, cigarettes, uncomplicated; E66.9 Obesity, unspecified; Z68.41 Body mass index [BMI] 40.0-44.9, adult
CPT/HCPCS: 36415; 71045; 71046; 80048; 80061; 80076; 82550; 82553; 82947; 83036; 83735; 83880; 84439; 84443; 84484; 85025; 85610; 93005; 93306; 94640; 96374; 99285; G0378; J1650; J1940; J7512; J7605